=== PATIENT | male | born 1990 | race Caucasian/White ===

== ENCOUNTER 2019-06-15 15:25 | Emergency (ER) | payer MEDICAID ==
[~2019-06-15] VITALS: Ht 157.5 cm; Wt 45.4 kg
[2019-06-15 16:03] VITALS: BP 145/89
[2019-06-15] MEDS ORDERED: LORazepam 2 MG/ML VIAL IM ONE (16:10)
[2019-06-15] MEDS ORDERED: KETOROLAC 60 MG/2 ML VIAL IM ONE ×2 (16:10→17:13)
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
--- NOTE | 2019-06-15 16:13 | NUR ---
PT AMBULATED TO ER BED 10
[2019-06-15] MEDS ORDERED: LORazepam 2 MG/ML VIAL ONE (17:13)
[2019-06-15 18:40] LABS: BARBITURATE, URINE NEG. ng/ml (NEG <=200); BENZODIAZEPINE, URINE NEG. ng/mL (NEG <=200); CANNABINOID, URINE NEG. ng/mL (NEG <=50); COCAINE, URINE NEG. ng/mL (NEG <=300); OPIATE, URINE NEG. ng/mL (NEG <=2000); PHENCYCLIDINE SCREEN,URINE NEG. ng/mL (NEG <=25)
--- NOTE | 2019-06-15 18:53 | NUR ---
[place] [facility] AT BEDSIDE.
[2019-06-15 19:02] VITALS: BP 127/87
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
== END 2019-06-15 19:03 | disposition home or self-care (01) ==
LOC: MED 15:25
DX: S02.2XXA Fracture of nasal bones, initial encounter for closed fracture (principal); S00.12XA Contusion of left eyelid and periocular area, initial encounter; S00.11XA Contusion of right eyelid and periocular area, initial encounter; S00.81XA Abrasion of other part of head, initial encounter; F10.10 Alcohol abuse, uncomplicated; F19.10 Other psychoactive substance abuse, uncomplicated; Y08.89XA Assault by other specified means, initial encounter; Y93.89 Activity, other specified; Y92.89 Other specified places as the place of occurrence of the external cause; Y99.8 Other external cause status
CPT/HCPCS: 36415; 70450; 70486; 72125; 80305; 90471; 90715; 96372; 99284; G0482; J1885; J2060